=== PATIENT | female | born 1990 | race Two or more races ===

== ENCOUNTER 2016-11-04 19:19 | Emergency (ER) | payer MEDICAID ==
[~2016-11-04] VITALS: Ht 152.4 cm; Wt 63.5 kg
[2016-11-04 19:23] VITALS: BP 122/84
[2016-11-04] MEDS ORDERED: ACETAMINOPHEN 325 MG TAB PO ONE ×2 (19:41→19:45)
[2016-11-04 20:12] LABS: Urine Bilirubin Negative (Negative); Urine Blood Negative /uL (Negative); Urine Color Yellow (Yellow); Urine Glucose Normal (Normal); Urine Mucus FEW (None Seen); Urine Nitrite Negative (Negative); Urine RBC <1 /hpf (0 - 4); Urine Squamous Epithelial Cell FEW /hpf (<5); Urine Urobilinogen Normal (Negative)
[2016-11-04 20:13] LABS: Urine Ketone 1+ (Negative)
== END 2016-11-04 20:34 | disposition left against medical advice (07) ==
LOC: EDUNIT# 19:19 → EDBD 19:19 → ER 19:25
DX: R51 Headache (principal); R11.2 Nausea with vomiting, unspecified; Z53.21 Procedure and treatment not carried out due to patient leaving prior to being seen by health care provider
CPT/HCPCS: 80307; 81001; 81025